=== PATIENT | female | born 1990 | race Two or more races ===

== ENCOUNTER 2018-12-30 11:29 | Emergency (ER) | payer BC ==
[~2018-12-30] VITALS: Ht 157.5 cm; Wt 80.8 kg
--- NOTE | 2018-12-30 13:20 | NUR ---
PATIENT PRESENTS TO ED TODAY FOR RLQ PAIN X 2 MONTHS WITH N/V, DENIES DIARRHEA. LMP 12/11/18, PATIENT DENIES /RECENT ABD SURGERIES/VAG BLEEDING. AWAITING MD ORDERS, CALL LIGHT WITHIN REACH.
[2018-12-30] MEDS ORDERED: MAALOX/HYOSCYAMINE/LIDOCAINE 45 ML BTL ONE (13:58)
[2018-12-30] MEDS ORDERED: ONDANSETRON 2MG/ML, 2ML ONE (13:58)
[2018-12-30] MEDS ORDERED: FAMOTIDINE 20 MG/2 ML ONE (13:58)
[2018-12-30] MEDS ORDERED: FAMOTIDINE 20 MG/2 ML IV ONE (14:00)
[2018-12-30] MEDS ORDERED: SODIUM CHLORIDE FLUSH 10ML SYR IVF ONE (14:00)
[2018-12-30] MEDS ORDERED: MAALOX/HYOSCYAMINE/LIDOCAINE 45 ML BTL PO ONE (14:00)
[2018-12-30] MEDS ORDERED: ONDANSETRON 2MG/ML, 2ML IVPush ONE (14:00)
--- NOTE | 2018-12-30 14:01 | NUR ---
PATIENT AMB WITH STEADY GAIT TO BATHROOM, SMALL AMOUNT OF URINE COLLECTED AND WALKED TO LAB. IV ESTABLISHED, LABS DRAWN, MEDICATIONS ADMINISTERED PER MAR, PATIENT TO XRAY VIA [facility].
[2018-12-30 14:24] LABS: BASOPHILS # (AUTO) 0.03 x10^3/uL (0-0.1); BASOPHILS % (AUTO) 0 % (0-1); EOSINOPHILS # (AUTO) 0.23 x10^3/uL (0-0.4); EOSINOPHILS % (AUTO) 3 % (1-7); LYMPHOCYTES # (AUTO) 2.66 x10^3/uL (1-3.4); LYMPHOCYTES % (AUTO) 29 % (22-44); MD NO; MEAN CORPUSCULAR HEMOGLOBIN 30.4 pg (27.0-34.8); MEAN CORPUSCULAR HGB CONC 33.8 g/dL (32.4-35.8); MEAN PLATELET VOLUME 10.4 fL (7.4-10.4); MONOCYTES # (AUTO) 0.54 x10^3/uL (0.2-0.8); MONOCYTES % (AUTO) 6 % (2-9); NEUTROPHILS # (AUTO) 5.66 x10^3/uL (1.8-6.8); NEUTROPHILS % (AUTO) 62 % (42-75); PLATELET COUNT 270 x10^3/uL (130-400); RED BLOOD COUNT 4.68 x10^6/uL (3.82-5.3); RED CELL DISTRIBUTION WIDTH 12.7 % (9.6-15.2)
[2018-12-30 14:30] LABS: ALANINE AMINOTRANSFERASE 27 U/L (12-78); ALBUMIN 4.1 g/dL (3.4-5.0); ANION GAP 7 mmol/L (5-15); CALCIUM 9.3 mg/dL (8.5-10.1); CHLORIDE 105 mmol/L (98-107); CREATININE 0.81 mg/dL (0.55-1.02)
[2018-12-30 14:32] LABS: ALKALINE PHOSPHATASE 97 U/L (45-117); BILIRUBIN,TOTAL 0.5 mg/dL (0.2-1.0); TOTAL PROTEIN 8.1 g/dL (6.4-8.2)
--- NOTE | 2018-12-30 14:33 | NUR ---
US DONE AT BEDSIDE, VS UPDATED IN CHART. PATIENT SITTING IN GURNEY SPEAKING WITH REGISTRATION AT BEDSIDE, NADN. XRAY RESULTS BACK, AWAITING US/UA/LAB RESULTS.
[2018-12-30 14:35] LABS: HCG UR SG 1.016 (1.003-1.030); MICROSCOPIC NOT IND
[2018-12-30 14:42] LABS: CULTURE INDICATED? NO
--- NOTE | 2018-12-30 14:55 | NUR ---
PATIENT REPORT MEDICATIONS HELPED.
--- NOTE | 2018-12-30 15:33 | NUR ---
RESULTS BACK, CHART UP FOR RECHECK.
[2018-12-30 16:11] VITALS: BP 114/66
--- NOTE | 2018-12-30 16:11 | NUR ---
Patient/Caregiver given discharge instructions and they have confirmed that they understand the instructions. Patient ambulatory with steady gait.
== END 2018-12-30 16:13 | disposition home or self-care (01) ==
LOC: ED 14:40
DX: K29.70 Gastritis, unspecified, without bleeding (principal)
CPT/HCPCS: 36415; 74021; 76700; 80053; 81003; 81025; 83690; 85025; 96374; 96375; 99284; J2405; J3490

== ENCOUNTER 2019-09-25 15:38 | Emergency (ER) | payer BC ==
[~2019-09-25] VITALS: Ht 157.5 cm; Wt 80.0 kg
[2019-09-25 15:42] VITALS: BP 113/66
--- NOTE | 2019-09-25 15:55 | NUR ---
ERP TO BEDSIDE.
--- NOTE | 2019-09-25 16:07 | NUR ---
LATE ENTRY: THIS PT WAS BIB EMS AFTER CALLING FOR NOSE BLEED THAT STARTED AT WORK. THE PT STATES SHE HAS A HX OF NOSE BLEEDS BUT TODAY "WAS GETTING OFF THE FORKLIFT TO GET TISSUE AND FELT VERY DIZZY, AND HANDS GOT NUMB AND SWEATY." PT STATES SHE HAS NOT FELT LIKE THIS BEFORE WITH HER BLOODY NOSES. ERP IS AWARE OF ALL SYMPTOMS. PER EMS THIS PT WAS BREATHING RAPIDLY AND END TITAL CO2 WAS ELEVATED. AT THE TIME OF ARRIVAL, PT'S NOSE IS NO LONGER BLEEDING. PT AWARE OF PLAN TO D/C AND IS OKAY WITH THIS. CURRENTLY PT SITTING AT EDGE OF BED, NO CURRENT COMPLAINTS. Addendum: 09/25/19 at 1654 by DALE LATE ENTRY FOR 669.
--- NOTE | 2019-09-25 16:29 | NUR ---
task rn: Patient/Caregiver given discharge instructions and they have confirmed that they understand the instructions. Patient ambulatory with steady gait. PT LEFT WITH ALL PERSONAL BELONGINGS.
== END 2019-09-25 16:31 | disposition home or self-care (01) ==
LOC: ED 16:12
DX: R04.0 Epistaxis (principal); R42 Dizziness and giddiness; Z90.49 Acquired absence of other specified parts of digestive tract
CPT/HCPCS: 99283